=== PATIENT | male | born 1960 | race Caucasian/White ===

== ENCOUNTER 2017-05-06 14:31 | Emergency (ER) | payer OTHER ==
[~2017-05-06] VITALS: Ht 177.8 cm; Wt 84.5 kg
[2017-05-06 14:31] VITALS: BP 135/101; PULSE 78; RESP 16; TEMP 98.3; O2SAT 97
[~2017-05-06 14:31] MED LIST: OXYC-360 PO; Z.0.NO CURRENT MEDS
[2017-05-06 15:45] LABS: AUTOMATED NEUTROPHIL # 4.3 TH/MM3 (1.8-7.7); BASOPHIL % 0.5 % (0.0-2.0); EOSINOPHIL # 0.2 TH/MM3 (0-0.4); EOSINOPHIL % 2.7 % (0.0-4.0); HEMOGLOBIN 13.6 GM/DL (13.0-17.0); LYMPH % 14.1 % (9.0-44.0); LYMPHOCYTE # 0.8 TH/MM3 (1.0-4.8); MEAN CELL VOLUME 83.4 FL (80.0-100.0); MEAN CORPUSCULAR HEMOGLOBIN 27.7 PG (27.0-34.0); MEAN CORPUSCULAR HGB CONC 33.2 % (32.0-36.0); MEAN PLATELET VOLUME 8.9 FL (7.0-11.0); MONO % 10.3 % (0.0-8.0); MONOCYTE # 0.6 TH/MM3 (0-0.9); NEUT % 72.4 % (16.0-70.0); PLATELET COUNT 227 TH/MM3 (150-450); RED BLOOD COUNT 4.92 MIL/MM3 (4.50-5.90); RED CELL DISTRIBUTION WIDTH 14.8 % (11.6-17.2); WHITE BLOOD COUNT 5.9 TH/MM3 (4.0-11.0)
[2017-05-06 16:02] LABS: ALBUMIN 3.6 GM/DL (3.4-5.0); AST (GOT) 16 U/L (15-37); BICARBONATE 30.2 MEQ/L (21.0-32.0); BLOOD UREA NITROGEN 11 MG/DL (7-18); CALCIUM 9.2 MG/DL (8.5-10.1); CHLORIDE 105 MEQ/L (98-107); CREATININE 1.18 MG/DL (0.60-1.30); GLOMERULAR FILTRATION RATE 64 ML/MIN (>89); GLUCOSE,RANDOM 92 MG/DL (74-106); SODIUM (NA) 140 MEQ/L (136-145)
[2017-05-06 16:05] LABS: ALKALINE PHOSPHATASE 67 U/L (45-117); ALT (GPT) 20 U/L (12-78); TOTAL BILIRUBIN ADULT 0.5 MG/DL (0.2-1.0); TOTAL PROTEIN 7.3 GM/DL (6.4-8.2)
[2017-05-06] MEDS ORDERED: LEVO50TA53 PO (17:09)
--- NOTE | 2017-05-06 17:11 | PD ---
HPI Chief Complaint: GI Complaint Time Seen by Provider: 16:54 Travel History International Travel<30 days: No Contact w/Intl Traveler<30days: No Traveled to known affect area: No History of Present Illness HPI This patient was sent by a local beef killer, Dr. Cornell, evaluation of thrombosed external hemorrhoids. Symptoms started yesterday. He reports a throbbing pain at his rectum which is worse when attempting a bowel movement. He has not had difficulty having a bowel movement. He reports some issues with urinary hesitancy secondary to the pain as well. He endorses chills but no objective fevers. Denies any nausea, vomiting, abdominal pain. He was seen today by Dr. Cornell and sent here for treatment of the thrombosed external hemorrhoid. I spoke with him on the phone and he would like a general surgeon to be called. There is no colorectal surgeon on-call today. PFSH Past Medical History Diminished Hearing: Yes (congenital deafness) Past Surgical History Other Surgery: Yes (inguinal hernia) Social History Alcohol Use: No Tobacco Use: No Allergies-Medications (Allergen,Severity, Reaction): Coded Allergies: No Known Allergies (Verified Allergy, Unknown, 05/06/17) Reported Meds & Prescriptions Reported Meds & Active Scripts Active Recticare Rectal (Lidocaine Rectal) 5 % Cream 1 Applic RECTAL QID PRN Zofran (Ondansetron HCl) 4 Mg Tab 4 Mg PO Q6HR PRN Percocet (Oxycodone-Acetaminophen) 10-325 mg Tab 1 Tab PO Q6H PRN Reported Levoxyl (Levothyroxine Sodium) 50 Mcg Tab 50 Mcg PO DAILY Review of Systems Except as stated in HPI: all other systems reviewed are Neg Physical Exam Narrative GENERAL: Pleasant well-developed well-nourished male in no acute distress SKIN: Warm and dry. HEAD: Atraumatic. Normocephalic. EYES: Pupils equal and round. No scleral icterus. No injection or drainage. ENT: No nasal bleeding or discharge. Mucous membranes pink and moist. NECK: Trachea midline. No JVD. CARDIOVASCULAR: Regular rate and rhythm. No murmur appreciated. RESPIRATORY: No accessory muscle use. Clear to auscultation. Breath sounds equal bilaterally. GASTROINTESTINAL: Abdomen soft, non-tender, nondistended. Hepatic and splenic margins not palpable. Rectal examination reveals 2 large thrombosed external hemorrhoids at the 2:00 and 4:00 positions. No current bleeding. Rectal examination reveals no evidence of impaction. MUSCULOSKELETAL: No obvious deformities. No clubbing. No cyanosis. No edema. NEUROLOGICAL: Awake and alert. No obvious cranial nerve deficits. Motor grossly within normal limits. Normal speech. PSYCHIATRIC: Appropriate mood and affect; insight and judgment normal. Data Data Last Documented VS Vital Signs Date Time Temp Pulse Resp B/P (MAP) Pulse Ox O2 Delivery O2 Flow Rate FiO2 05/06/17 19:12 05/06/17 17:13 68 14 98 Room Air 05/06/17 14:31 98.3 Orders Orders Complete Blood Count With Diff (05/06/17 14:56) Comprehensive Metabolic Panel (05/06/17 14:56) Coag Profile (05/06/17 14:56) Urinalysis - C+S If Indicated (05/06/17 14:56) Docusate Sodium (Colace) (05/06/17 17:30) Acetamin-Hydrocod 325-5 Mg ([place] 5-325 (05/06/17 17:30) Ondansetron Odt (Zofran Odt) (05/06/17 17:30) Ed Discharge Order (05/06/17 18:54) Consult Colorectal Surgery (05/06/17 ) Labs Laboratory Tests Test 05/06/17 15:10 05/06/17 17:38 White Blood Count 5.9 TH/MM3 Red Blood Count 4.92 MIL/MM3 Hemoglobin 13.6 GM/DL Hematocrit 41.0 % Mean Corpuscular Volume 83.4 FL Mean Corpuscular Hemoglobin 27.7 PG Mean Corpuscular Hemoglobin Concent 33.2 % Red Cell Distribution Width 14.8 % Platelet Count 227 TH/MM3 Mean Platelet Volume 8.9 FL Neutrophils (%) (Auto) 72.4 % Lymphocytes (%) (Auto) 14.1 % Monocytes (%) (Auto) 10.3 % Eosinophils (%) (Auto) 2.7 % Basophils (%) (Auto) 0.5 % Neutrophils # (Auto) 4.3 TH/MM3 Lymphocytes # (Auto) 0.8 TH/MM3 Monocytes # (Auto) 0.6 TH/MM3 Eosinophils # (Auto) 0.2 TH/MM3 Basophils # (Auto) 0.0 TH/MM3 CBC Comment DIFF FINAL Differential Comment Prothrombin Time 10.0 SEC Prothromb Time International Ratio 1.0 RATIO Activated Partial Thromboplast Time 24.6 SEC Blood Urea Nitrogen 11 MG/DL Creatinine 1.18 MG/DL Random Glucose 92 MG/DL Total Protein 7.3 GM/DL Albumin 3.6 GM/DL Calcium Level 9.2 MG/DL Alkaline Phosphatase 67 U/L Aspartate Amino Transf (AST/SGOT) 16 U/L Alanine Aminotransferase (ALT/SGPT) 20 U/L Total Bilirubin 0.5 MG/DL Sodium Level 140 MEQ/L Potassium Level 3.9 MEQ/L Chloride Level 105 MEQ/L Carbon Dioxide Level 30.2 MEQ/L Anion Gap 5 MEQ/L Estimat Glomerular Filtration Rate 64 ML/MIN Urine Color YELLOW Urine Turbidity CLEAR Urine pH 6.0 Urine Specific [place] 1.010 Urine Protein NEG mg/dL Urine Glucose (UA) NEG mg/dL Urine Ketones NEG mg/dL Urine Occult Blood NEG Urine Nitrite NEG Urine Bilirubin NEG Urine Urobilinogen LESS THAN 2.0 MG/DL Urine Leukocyte Esterase NEG Urine RBC LESS THAN 1 /hpf Urine WBC LESS THAN 1 /hpf Urine Mucus FEW /lpf Microscopic Urinalysis Comment CULT NOT INDICATED MDM Medical Decision Making Medical Screen Exam Complete: Yes Emergency Medical Condition: Yes Medical Record Reviewed: Yes Differential Diagnosis Thrombosed external hemorrhoid, anal fissure, rectal prolapse Narrative Course I discussed with Dr. Cornell the beef killer who sent the patient here and he would like surgery to be consult in regards to the thrombosed external hemorrhoid. Eventually it was discovered that in [id number] Tanner colorectal surgeon. Therefore he graciously agreed to come and see the patient in the ED. He plans on taking him to same day surgery tomorrow and recommends oral opiate therapy for pain. The patient is being discharged with a short course of Percocet, Zofran, recticare cream. Diagnosis Primary Impression: Thrombosed external hemorrhoids Referrals: Oiv Tanner MD Additional Instructions: Medication as needed. Follow-up with Dr. Tanner tomorrow as scheduled. Return for any emergent medical conditions. Med/Other Pt SpecificInfo: Prescription(s) given Scripts Lidocaine Rectal (Recticare Rectal) 5 % Cream 1 APPLIC RECTAL QID Y for PAIN SCALE 6 TO 10, #1 TUBE Prov: Ani Jama MD 05/06/17 Ondansetron (Zofran) 4 Mg Tab 4 MG PO Q6HR Y for NAUSEA OR VOMITING, #15 TAB 0 Refills Prov: Ani Jama MD 05/06/17 Oxycodone-Acetaminophen (Percocet) 10-325 mg Tab 1 TAB PO Q6H Y for PAIN, #15 TAB 0 Refills Prov: Ani Jama MD 05/06/17 Disposition: 01 DISCHARGE HOME Condition: Stable Eriberto Iverson May 06, 2017 17:11
[2017-05-06 17:13] VITALS: BP 132/76; PULSE 68; RESP 14; O2SAT 98
[2017-05-06] MEDS ORDERED: DOCUSATE SODIUM 100 MG CAP PO ONE (17:30)
[2017-05-06] MEDS ORDERED: ACETAMINOPHEN/HYDROcodone 325 MG/5 MG TAB PO ONE (17:30)
[2017-05-06] MEDS ORDERED: ONDANSETRON ODT 4 MG TAB PO ONE (17:30)
[2017-05-06 17:58] LABS: BILIRUBIN, URINE NEG (NEG); BLOOD, URINE NEG (NEG); GLUCOSE,URINE NEG (NEG); KETONE, URINE NEG (NEG); MUCUS URINE FEW /lpf (OCC); NITRITE,URINE NEG (NEG); URINE COLOR YELLOW (YELLW/STRAW); URINE LEUKOCYTE ESTERASE NEG (NEG)
[2017-05-06] MEDS ORDERED: PERC10TA27 PO (18:47)
[2017-05-06] MEDS ORDERED: LIDO5CRE8 RECTAL (18:47)
[2017-05-06] MEDS ORDERED: ZOFR4TAB PO (18:47)
== END 2017-05-06 19:14 | disposition home or self-care (01) ==
LOC: NEPE 14:31
DX: K64.5 Perianal venous thrombosis (principal)
CPT/HCPCS: 80053; 81001; 85025; 85610; 85730; 99283